=== PATIENT | female | born 1995 | race Caucasian/White ===

== ENCOUNTER 2016-12-08 04:16 | Emergency (ER) | payer SELFPAY ==
[~2016-12-08] VITALS: Ht 162.6 cm; Wt 78.7 kg
[~2016-12-08 04:16] MED LIST: CITA20TA9 PO; HYDR-5688 PO
[2016-12-08 04:30] VITALS: TEMP 37; Ht 162.6 cm; Wt 78.7 kg
[2016-12-08] MEDS ORDERED: CITA40TA12 PO (04:54)
[2016-12-08] MEDS ORDERED: ONDANSETRON 4MG OD TAB PO ONE (05:00)
--- NOTE | 2016-12-08 05:12 | EMERGENCY ROOM VISIT NOTE ---
History First contact with patient: 04:42 Chief Complaint: VOMITING Stated Complaint: VOMITING(DRANK TOO MUCH) NO MEDS IN 2 DAYS Nursing Triage Summary: vomiting started one hour ago, emisis 5-6 times, clear History of Present Illness The patient is a 21 year old female who presents to the Emergency Room with complaints of vomiting which began one hour ago. The patient reports that she had been drinking alcohol prior to the onset of the vomiting. She states that she drank 1.5 pitchers of beer in 2-3 shots of liquor between the hours of 2230 and 0030. She states that when she lays down, the room began spinning. She has had multiple episodes of vomiting and has not been able to tolerate any oral fluids. The patient reports nausea at this time, but denies any abdominal pain. She denies urinary symptoms, chest pain, shortness of breath, headache or neck pain. Review of Systems A complete 10-point Review of Systems was discussed with the patient, with pertinent positives and negatives listed in the History of Present Illness. All remaining Review of Systems questions can be considered negative unless otherwise specified. Past Medical/Surgical History Medical Problems: (1) Dysuria (2) No Known Active Medical Problems (3) Pain, dental (4) Pain, dental (5) Pelvic girdle weakness (6) SI (sacroiliac) joint dysfunction (7) TOBACCO USE DISORDER Social History Smoking Status: Former Smoker Alcohol Use: none Drug Use: none Marital Status: single Housing Status: lives with significant other Occupation Status: employed Current/Historical Medications Scheduled Citalopram Hydrobromide (Celexa), 40 MG PO DAILY Allergies Coded Allergies: No Known Allergies (Unverified , 12/08/16) Physical Exam Vital Signs Date Time Temp Pulse Resp B/P Pulse Ox O2 Delivery O2 Flow Rate FiO2 12/08/16 06:09 72 18 104/60 98 Room Air 12/08/16 04:30 37.0 80 18 110/74 98 Room Air Physical Exam VITALS: Vitals are noted on the nurse's note and reviewed by myself. Vital signs stable. GENERAL: This is a 21-year-old female, in no acute distress, nondiaphoretic, well-developed well-nourished. SKIN: Capillary reflex less than 2 seconds. HEENT: Normocephalic. PERRLA. EOMI. Nares patent. Mucous membranes moist. Neck is supple without nuchal rigidity. HEART: Regular rate and rhythm without murmurs gallops or rubs. LUNGS: Clear to auscultation bilaterally without wheezes, rales or rhonchi. ABDOMEN: Positive bowel sounds x 4. Soft, nontender to palpation. No guarding or rigidity. NEURO: Patient was alert and oriented to person place and time. Medical Decision & Procedures Medications Administered Medications (Trade) Dose Ordered Sig/Kathy Route Start Time Stop Time Status Last Admin Dose Admin Ondansetron HCl (Zofran Odt) 4 mg ONE ONCE PO 12/08/16 05:00 12/08/16 05:01 DC 12/08/16 05:09 4 MG Ondansetron HCl (ZOFRAN ODT 4MG Home Pack) 1 homepack UD ONCE PO 12/08/16 06:00 12/08/16 06:01 DC 12/08/16 06:15 1 HOMEPACK Medical Decision Differential diagnosis includes alcohol use, cholecystitis, infection, gastroenteritis, among others. The patient was evaluated as above. She presents with vomiting after drinking alcohol tonight. The patient was given 4 mg Zofran ODT was for relief of her symptoms. She was able to tolerate fluids. She was given a home pack of Zofran and conservative measures were discussed. She verbalized understanding and was discharged home in good condition. Impression Primary Impression: Nausea and vomiting Departure Information Dispostion Home / Self-Care Condition GOOD Referrals Zackery Berman M.D. (PCP) Patient Instructions My [facility] Additional Instructions You have been prescribed Zofran to be used for any nausea or vomiting. Take as prescribed. Rest and drink plenty of fluids. Problem Qualifiers Primary Impression: Nausea and vomiting Vomiting type: unspecified Vomiting Intractability: non-intractable Qualified Codes: R11.2 - Nausea with vomiting, unspecified
[2016-12-08] MEDS ORDERED: ONDANSETRON HOME PACK 4MG OD TAB PO ONE (06:00)
[2016-12-08 06:09] VITALS: BP 104/60; PULSE 72; O2SAT 98
== END 2016-12-08 06:18 | disposition home or self-care (01) ==
LOC: C.EDB 04:18 → C.EDA 06:18
DX: R11.2 Nausea with vomiting, unspecified (principal); Z87.891 Personal history of nicotine dependence

== ENCOUNTER 2017-02-19 04:13 | Emergency (ER) | payer OTHER ==
[~2017-02-19] VITALS: Ht 162.6 cm; Wt 82.0 kg
[~2017-02-19 04:13] MED LIST changes: -CITA20TA9 PO; +CITA40TA12 PO; -HYDR-5688 PO
[2017-02-19 04:39] VITALS: TEMP 37.2; Ht 162.6 cm; Wt 82.0 kg
--- NOTE | 2017-02-19 04:55 | EMERGENCY ROOM VISIT NOTE ---
History Report prepared by Darrell: Marianela Hernandez Under the Supervision of: Dr. Montserrat Suazo M.D. First contact with patient: 04:24 Chief Complaint: MENTAL HEALTH EVALUATION Stated Complaint: MENTAL HEALTH EVAL History of Present Illness The patient is a 22 year old female who presents to the Emergency Room with complaints of persistent mental health problems starting [employer]. The mental health corrections caseworker reports that the patient had a fight with her girlfriend. She is tearful. She told her mother a vague statement stating she wouldn't see her anymore. She was brought to the ED by police whom she did tell she was feeling suicidal. She is intoxicated. She often feels suicidal over relationship problems. The patient reports that she was upset that her girlfriend said she would not be coming home for 2nd weekend in a row. Her girlfriend said that she was staying at a friend's house. She has cheated on the patient before so she is distrustful of her. The girlfriend came with the police to get her stuff. She had drank a 12 pack of beer and was intoxicated. She told her girlfriend how she felt. She said that she would rather kill herself than be by herself. She has never attempted suicide, but has thought about it. She thought about crashing her car a couple nights ago. She thought about it today, but states that she does not believe she could go through with it. She was on medications for depression and anxiety, but stopped taking it because she has an abnormal sleep schedule and she did not care. Her sleep schedule is abnormal because of her girlfriend's work schedule. She has never had inpatient mental health care before. She does not have a psychiatrist. She admits to taking some hydrocodone the other night which was leftover from an arm injury. She denies any marijuana use. She denies any chance of . She denies cutting in the past year. She denies any recent injury or trauma. Source of History: patient, other (corrections caseworker) Onset: SHIPPING CHECKER Position: other (mental health) Quality: other (mental health problems) Timing: other (persistent) Note: Pt admits suicidal ideation. Pt denies homicidal ideation, trauma, or injury. Review of Systems See HPI for pertinent positives & negatives. A total of 10 systems reviewed and were otherwise negative. Past Medical & Surgical Medical Problems: (1) Dysuria (2) No Known Active Medical Problems (3) Pain, dental (4) Pain, dental (5) Pelvic girdle weakness (6) SI (sacroiliac) joint dysfunction (7) TOBACCO USE DISORDER Family History No pertinent family history stated. Social History Smoking Status: Former Smoker Alcohol Use: occasionally Drug Use: none Marital Status: single Housing Status: lives with significant other Occupation Status: employed Current/Historical Medications No Active Prescriptions or Reported Meds Allergies Coded Allergies: No Known Allergies (Unverified , 02/19/17) Physical Exam Vital Signs Date Time Temp Pulse Resp B/P Pulse Ox O2 Delivery O2 Flow Rate FiO2 02/19/17 04:39 37.2 118 20 135/98 97 Room Air Physical Exam Vital signs reviewed. General: Well-appearing 22 year old female, in no significant distress. HEENT: No scleral icterus, PERRLA, neck supple. Atraumatic. Cardiovascular: Regular rate and rhythm, no extra sounds. Pulmonary: Clear to auscultation bilaterally, normal work of breathing. Abdomen: Soft, nontender, nondistended, positive bowel sounds. Musculoskeletal: Atraumatic, no peripheral edema. Neurologic: Patient awake alert and oriented x 3, full strength in all 4 extremities. Cranial nerves 2 through 12 grossly intact. Skin: Warm, dry, no rash Psych: Positive SI, negative HI. Medical Decision & Procedures Laboratory Results 02/19/17 04:50 Red Blood Count 4.08, Mean Corpuscular Volume 92.2, Mean Corpuscular Hemoglobin 31.6, Mean Corpuscular Hemoglobin Concent 34.3, Mean Platelet Volume 9.6, Neutrophils (%) (Auto) 57.2, Lymphocytes (%) (Auto) 37.0, Monocytes (%) (Auto) 5.0, Eosinophils (%) (Auto) 0.0, Basophils (%) (Auto) 0.5, Neutrophils # (Auto) 4.42, Lymphocytes # (Auto) 2.86, Monocytes # (Auto) 0.39, Eosinophils # (Auto) 0.00, Basophils # (Auto) 0.04 02/19/17 04:50 Test 02/19/17 04:47 02/19/17 04:50 Urine Color YELLOW Urine Appearance CLEAR (CLEAR) Urine pH 6.0 (4.5-7.5) Urine Specific [place] 1.006 (1.000-1.030) Urine Protein NEG (NEG) Urine Glucose (UA) NEG (NEG) Urine Ketones NEG (NEG) Urine Occult Blood NEG (NEG) Urine Nitrite NEG (NEG) Urine Bilirubin NEG (NEG) Urine Urobilinogen NEG (NEG) Urine Leukocyte Esterase NEG (NEG) Urine Test NEG (NEG) Urine Opiates Screen NEG (NEG) Urine Methadone, Qualitative NEG (NEG) Urine Barbiturates NEG (NEG) Urine Phencyclidine (PCP) Level NEG (NEG) Ur Amphetamine/Methamphetamine NEG (NEG) MDMA (Ecstasy) Screen NEG (NEG) Urine Benzodiazepines Screen NEG (NEG) Urine Cocaine Metabolite NEG (NEG) Urine Marijuana (THC) NEG (NEG) White Blood Count 7.73 K/uL (4.8-10.8) Red Blood Count 4.08 M/uL (4.2-5.4) Hemoglobin 12.9 g/dL (12.0-16.0) Hematocrit 37.6 % (37-47) Mean Corpuscular Volume 92.2 fL (80-100) Mean Corpuscular Hemoglobin 31.6 pg (25-34) Mean Corpuscular Hemoglobin Concent 34.3 g/dl (32-36) Platelet Count 362 K/uL (130-400) Mean Platelet Volume 9.6 fL (7.4-10.4) Neutrophils (%) (Auto) 57.2 % Lymphocytes (%) (Auto) 37.0 % Monocytes (%) (Auto) 5.0 % Eosinophils (%) (Auto) 0.0 % Basophils (%) (Auto) 0.5 % Neutrophils # (Auto) 4.42 K/uL (1.4-6.5) Lymphocytes # (Auto) 2.86 K/uL (1.2-3.4) Monocytes # (Auto) 0.39 K/uL (0.11-0.59) Eosinophils # (Auto) 0.00 K/uL (0-0.5) Basophils # (Auto) 0.04 K/uL (0-0.2) RDW Standard Deviation 40.3 fL (36.4-46.3) RDW Coefficient of Variation 11.8 % (11.5-14.5) Immature Granulocyte % (Auto) 0.3 % Immature Granulocyte # (Auto) 0.02 K/uL (0.00-0.02) Anion Gap 13.0 mmol/L (3-11) Est Creatinine Clear Calc Drug Dose 153.7 ml/min Estimated GFR () 149.7 Estimated GFR (Non- 129.2 BUN/Creatinine Ratio 14.4 (10-20) Calcium Level 8.8 mg/dl (8.5-10.1) Total Bilirubin 0.1 mg/dl (0.2-1) Direct Bilirubin < 0.1 mg/dl (0-0.2) Aspartate Amino Transf (AST/SGOT) 10 U/L (15-37) Alanine Aminotransferase (ALT/SGPT) 16 U/L (12-78) Alkaline Phosphatase 71 U/L (45-117) Total Protein 8.5 gm/dl (6.4-8.2) Albumin 3.9 gm/dl (3.4-5.0) Thyroid Stimulating Hormone (TSH) 0.919 uIu/ml (0.300-4.500) Salicylates Level < 1.7 mg/dl (2.8-20) Acetaminophen Level < 2 ug/ml (10-30) Ethyl Alcohol mg/dL 165.0 mg/dl (0-3) Laboratory results per my review. ED Course 0433: Past medical records reviewed. The patient was evaluated in room A7. A complete history and physical examination was performed. Medical Decision Differential diagnosis: Etiologies such as mood disorder, infection, hypoglycemia, electrolyte abnormalities, cardiac sources, intracerebral event, toxicologic, neurologic, as well as others were entertained. This patient was evaluated and appeared to be in no significant distress. Patient was medically evaluated and found to have a blood alcohol of 165. She admits to suicidal ideation and will require psychiatric evaluation. Patient will be clear for psychiatric evaluation at 0750. The case has been signed out to Dr. Stanley at the change of shift, patient is aware of the plan and agrees. Impression Primary Impression: Suicidal ideation Additional Impression: Alcohol intoxication Scribe Attestation The scribe's documentation has been prepared under my direction and personally reviewed by me in its entirety. I confirm that the note above accurately reflects all work, treatment, procedures, and medical decision making performed by me. Departure Information Prescriptions No Active Prescriptions or Reported Meds Referrals No Doctor, Assigned (PCP) Patient Instructions My [facility] Problem Qualifiers
[2017-02-19 05:25] LABS: URINE APPEARANCE CLEAR (CLEAR); URINE BILIRUBIN NEG (NEG); URINE COLOR YELLOW; URINE NITRITE NEG (NEG); URINE SPECIFIC GRAVITY 1.006 (1.000-1.030); UROBILINOGEN NEG (NEG); ZZUR CULT IF INDIC CLEAN CATCH NO
[2017-02-19 05:33] LABS: BASO % 0.5 %; BASO ABS # 0.04 K/uL (0-0.2); COMPLETE YES; HEMATOCRIT 37.6 % (37-47); IG% 0.3 %; LYMPH ABS # 2.86 K/uL (1.2-3.4); MEAN CELL VOLUME 92.2 fL (80-100); MEAN CORPUSCULAR HEMOGLOBIN 31.6 pg (25-34); MEAN CORPUSCULAR HGB CONC 34.3 g/dl (32-36); MEAN PLATELET VOLUME 9.6 fL (7.4-10.4); NEUT % 57.2 %; PLATELET COUNT 362 K/uL (130-400); RED BLOOD COUNT 4.08 M/uL (4.2-5.4); WHITE BLOOD COUNT 7.73 K/uL (4.8-10.8)
[2017-02-19 05:34] LABS: MANUAL MICROSCOPIC REQUIRED? NO; PREG INTERNAL NEGATIVE QC NEG CLEAR BACKGROUND; PREG INTERNAL POSITIVE QC POS CONTROL LINE; REVIEW REQ? NO
[2017-02-19 05:42] LABS: ALT/SGPT 16 U/L (12-78); AST/SGOT 10 U/L (15-37); BLOOD UREA NITROGEN 8 mg/dl (7-18); BUN/CREATININE RATIO 14.4 (10-20); CALCIUM 8.8 mg/dl (8.5-10.1); CARBON DIOXIDE 23 mmol/L (21-32); CHLORIDE 106 mmol/L (98-107); CREATININE 0.59 mg/dl (0.60-1.20); GLUCOSE 99 mg/dl (70-99); POTASSIUM 3.4 mmol/L (3.5-5.1); SODIUM 142 mmol/L (136-145)
[2017-02-19 05:46] LABS: BENZODIAZEPINE, URINE NEG (NEG); COCAINE,URINE NEG (NEG); PHENCYCLIDINE, URINE NEG (NEG)
[2017-02-19 05:50] LABS: ACETAMINOPHEN < 2 ug/ml (10-30)
[2017-02-19 05:53] LABS: ALKALINE PHOSPHATASE 71 U/L (45-117); THYROID STIMULATING HORMONE 0.919 uIu/ml (0.300-4.500)
--- NOTE | 2017-02-19 15:01 | EMERGENCY ROOM VISIT NOTE ---
ED Visit Note First contact with patient: 09:09 Patient was signed out to me with a [address] which was rejected by [facility]. Patient was reevaluated and agreeable to come in on a 201 for suicidal ideations which have been present/coming going almost daily with or drinking at night. She was accepted in transfer to the [facility] on a 201.
[2017-02-19 16:58] VITALS: BP 132/81; PULSE 89; O2SAT 99
[2017-02-26 18:34] LABS: SYNTHETIC CANNABINOIDS QL URIN NEGATIVE (Negative)
== END 2017-02-19 16:59 ==
LOC: EDBD 04:13 → C.EDA 04:14
DX: R45.851 Suicidal ideations (principal); F10.129 Alcohol abuse with intoxication, unspecified; Y90.6 Blood alcohol level of 120-199 mg/100 ml; F17.200 Nicotine dependence, unspecified, uncomplicated; Z87.891 Personal history of nicotine dependence

== ENCOUNTER 2017-07-04 01:20 | Emergency (ER) | payer OTHER ==
[~2017-07-04] VITALS: Ht 162.6 cm; Wt 84.5 kg
[2017-07-04 01:26] VITALS: TEMP 36.9; Ht 162.6 cm; Wt 84.5 kg
--- NOTE | 2017-07-04 02:02 | EMERGENCY ROOM VISIT NOTE ---
History Report prepared by Darrell: Jossie Patel Under the Supervision of: Dr. Montserrat Suazo M.D. First contact with patient: 01:33 Chief Complaint: MENTAL HEALTH EVALUATION Stated Complaint: DEPRESSION History of Present Illness The patient is a 22 year old female who presents to the Emergency Room with complaints of depression. The patient states that she feels that she needs to get back on her medication for depression. She states that she has not been on it for 2 months and that she was on it for a month previously. The patient reports that she stopped taking the medication a couple weeks after she was at [place]. She states that she was fine until she went through a break-up a month ago. She states that she feels as if the break-up is hitting her now and that she has been having suicidal thoughts when she is drinking alcohol. The patient denies an attempt at killing herself. She states that she has suicidal thoughts when she drinks but not when she is sober. The patient states that she drank 6 beers tonight and that she is a smoker. The patient reports that she has a new girlfriend, but that the girlfriend has been distant the last couple of days. Source of History: patient Onset: tonight Position: other (global) Quality: other (depression) Timing: constant Note: additional symptom: suicidal thoughts when drinking Review of Systems See HPI for pertinent positives & negatives. A total of 10 systems reviewed and were otherwise negative. Past Medical & Surgical Medical Problems: (1) Depression (2) Dysuria (3) Pain, dental (4) Pain, dental (5) Pelvic girdle weakness (6) SI (sacroiliac) joint dysfunction (7) TOBACCO USE DISORDER Family History No pertinent family history stated. Social History Smoking Status: Current Every Day Smoker Alcohol Use: occasionally Drug Use: none Marital Status: in relationship Occupation Status: employed Current/Historical Medications Scheduled PRN Lorazepam (Ativan), 0.5 MG PO DAILY PRN for Anxiety Allergies Coded Allergies: No Known Allergies (Unverified , 07/04/17) Physical Exam Vital Signs Date Time Temp Pulse Resp B/P (MAP) Pulse Ox O2 Delivery O2 Flow Rate FiO2 07/04/17 01:26 36.9 105 20 137/69 97 Room Air Physical Exam Vital signs reviewed. General: Well-appearing female, in no significant distress. HEENT: No scleral icterus, PERRLA, neck supple. Atraumatic. Cardiovascular: Regular rate and rhythm, no extra sounds. Pulmonary: Clear to auscultation bilaterally, normal work of breathing. Abdomen: Soft, nontender, nondistended, positive bowel sounds. Musculoskeletal: Atraumatic, no peripheral edema. Neurologic: Patient awake alert and oriented x 3, full strength in all 4 extremities. Cranial nerves 2 through 12 grossly intact. Psych: + SI, - HI Skin: Warm, dry, no rash Medical Decision & Procedures Laboratory Results 07/04/17 02:18 Red Blood Count 4.71, Mean Corpuscular Volume 91.5, Mean Corpuscular Hemoglobin 32.1, Mean Corpuscular Hemoglobin Concent 35.0, Mean Platelet Volume 9.8, Neutrophils (%) (Auto) 58.1, Lymphocytes (%) (Auto) 33.2, Monocytes (%) (Auto) 6.3, Eosinophils (%) (Auto) 1.9, Basophils (%) (Auto) 0.4, Neutrophils # (Auto) 4.08, Lymphocytes # (Auto) 2.33, Monocytes # (Auto) 0.44, Eosinophils # (Auto) 0.13, Basophils # (Auto) 0.03 07/04/17 02:18 Test 07/04/17 02:18 07/04/17 02:25 White Blood Count 7.02 K/uL (4.8-10.8) Red Blood Count 4.71 M/uL (4.2-5.4) Hemoglobin 15.1 g/dL (12.0-16.0) Hematocrit 43.1 % (37-47) Mean Corpuscular Volume 91.5 fL (80-100) Mean Corpuscular Hemoglobin 32.1 pg (25-34) Mean Corpuscular Hemoglobin Concent 35.0 g/dl (32-36) Platelet Count 286 K/uL (130-400) Mean Platelet Volume 9.8 fL (7.4-10.4) Neutrophils (%) (Auto) 58.1 % Lymphocytes (%) (Auto) 33.2 % Monocytes (%) (Auto) 6.3 % Eosinophils (%) (Auto) 1.9 % Basophils (%) (Auto) 0.4 % Neutrophils # (Auto) 4.08 K/uL (1.4-6.5) Lymphocytes # (Auto) 2.33 K/uL (1.2-3.4) Monocytes # (Auto) 0.44 K/uL (0.11-0.59) Eosinophils # (Auto) 0.13 K/uL (0-0.5) Basophils # (Auto) 0.03 K/uL (0-0.2) RDW Standard Deviation 39.4 fL (36.4-46.3) RDW Coefficient of Variation 11.6 % (11.5-14.5) Immature Granulocyte % (Auto) 0.1 % Immature Granulocyte # (Auto) 0.01 K/uL (0.00-0.02) Anion Gap 9.0 mmol/L (3-11) Est Creatinine Clear Calc Drug Dose 109.6 ml/min Estimated GFR () 113.5 Estimated GFR (Non- 98.0 BUN/Creatinine Ratio 8.5 (10-20) Calcium Level 8.2 mg/dl (8.5-10.1) Total Bilirubin 0.1 mg/dl (0.2-1) Direct Bilirubin < 0.1 mg/dl (0-0.2) Aspartate Amino Transf (AST/SGOT) 10 U/L (15-37) Alanine Aminotransferase (ALT/SGPT) 21 U/L (12-78) Alkaline Phosphatase 82 U/L (45-117) Total Protein 7.9 gm/dl (6.4-8.2) Albumin 3.7 gm/dl (3.4-5.0) Thyroid Stimulating Hormone (TSH) 0.658 uIu/ml (0.300-4.500) Salicylates Level 1.7 mg/dl (2.8-20) Acetaminophen Level < 2 ug/ml (10-30) Ethyl Alcohol mg/dL 186.0 mg/dl (0-3) Urine Color YELLOW Urine Appearance CLEAR (CLEAR) Urine pH 5.5 (4.5-7.5) Urine Specific [place] 1.012 (1.000-1.030) Urine Protein NEG (NEG) Urine Glucose (UA) NEG (NEG) Urine Ketones NEG (NEG) Urine Occult Blood NEG (NEG) Urine Nitrite NEG (NEG) Urine Bilirubin NEG (NEG) Urine Urobilinogen NEG (NEG) Urine Leukocyte Esterase NEG (NEG) Urine Test NEG (NEG) Urine Opiates Screen NEG (NEG) Urine Methadone, Qualitative NEG (NEG) Urine Barbiturates NEG (NEG) Urine Phencyclidine (PCP) Level NEG (NEG) Ur Amphetamine/Methamphetamine NEG (NEG) MDMA (Ecstasy) Screen NEG (NEG) Urine Benzodiazepines Screen NEG (NEG) Urine Cocaine Metabolite NEG (NEG) Urine Marijuana (THC) NEG (NEG) Laboratory results per my review. ED Course 0152: Past medical records reviewed. The patient was evaluated in room A6. A complete history and physical examination was performed. Medical Decision Differential diagnosis: Etiologies such as mood disorder, infection, hypoglycemia, electrolyte abnormalities, cardiac sources, intracerebral event, toxicologic, neurologic, as well as others were entertained. This patient was evaluated and appeared to be in no significant distress. The patient was medically cleared after her blood alcohol was less than 100. Patient was evaluated by 3 S. and felt to have situational stressors along with new testosterone injections and alcohol consumption that contributed to her suicidal thoughts. The patient states when she is sober she does not have issues such as this. She has not been drinking in approximately 2 months. The patient is also currently taking testosterone as she is transgender. The case was discussed with Dr. German who recommended outpatient management in the patient restarting her Prozac. She will contact her PCP for short-term follow- up. Dr. German is also recommended counseling. Please see psychiatric documentation for further detail. The patient was able to CT plan and will return to the ER immediately for worsening of symptoms or any medical concerns. Medication Reconcilliation Current Medication List: was personally reviewed by me Blood Pressure Screening Patient's blood pressure: Normal blood pressure Impression Primary Impression: Alcohol intoxication Additional Impression: Suicidal thoughts Scribe Attestation The scribe's documentation has been prepared under my direction and personally reviewed by me in its entirety. I confirm that the note above accurately reflects all work, treatment, procedures, and medical decision making performed by me. Departure Information Referrals Zackery Berman M.D. (PCP) Patient Instructions My [facility] Problem Qualifiers
[2017-07-04 02:27] LABS: BASO % 0.4 %; BASO ABS # 0.03 K/uL (0-0.2); COMPLETE YES; EOS % 1.9 %; HEMATOCRIT 43.1 % (37-47); IG% 0.1 %; LYMPH % 33.2 %; LYMPH ABS # 2.33 K/uL (1.2-3.4); MEAN CELL VOLUME 91.5 fL (80-100); MEAN CORPUSCULAR HEMOGLOBIN 32.1 pg (25-34); MEAN PLATELET VOLUME 9.8 fL (7.4-10.4); MONO % 6.3 %; NEUT % 58.1 %; PLATELET COUNT 286 K/uL (130-400); RED BLOOD COUNT 4.71 M/uL (4.2-5.4); WHITE BLOOD COUNT 7.02 K/uL (4.8-10.8)
[2017-07-04 02:41] LABS: URINE APPEARANCE CLEAR (CLEAR); URINE BILIRUBIN NEG (NEG); URINE COLOR YELLOW; URINE NITRITE NEG (NEG); URINE PH 5.5 (4.5-7.5); URINE SPECIFIC GRAVITY 1.012 (1.000-1.030); UROBILINOGEN NEG (NEG); ZZUR CULT IF INDIC CLEAN CATCH NO
[2017-07-04 02:44] LABS: MANUAL MICROSCOPIC REQUIRED? NO; REVIEW REQ? NO
[2017-07-04 02:45] LABS: ALT/SGPT 21 U/L (12-78); AST/SGOT 10 U/L (15-37); BLOOD UREA NITROGEN 7 mg/dl (7-18); BUN/CREATININE RATIO 8.5 (10-20); CALCIUM 8.2 mg/dl (8.5-10.1); CARBON DIOXIDE 25 mmol/L (21-32); CHLORIDE 105 mmol/L (98-107); CREATININE 0.84 mg/dl (0.60-1.20); GLUCOSE 91 mg/dl (70-99); POTASSIUM 3.5 mmol/L (3.5-5.1); SODIUM 139 mmol/L (136-145)
[2017-07-04 02:54] LABS: ACETAMINOPHEN < 2 ug/ml (10-30)
[2017-07-04 02:55] LABS: ALKALINE PHOSPHATASE 82 U/L (45-117); THYROID STIMULATING HORMONE 0.658 uIu/ml (0.300-4.500)
[2017-07-04] MEDS ORDERED: LORA-741 PO (02:58)
[2017-07-04 03:02] LABS: BENZODIAZEPINE, URINE NEG (NEG); COCAINE,URINE NEG (NEG); PHENCYCLIDINE, URINE NEG (NEG)
[2017-07-04 06:38] VITALS: BP 131/76; PULSE 97; O2SAT 98
[2017-07-11 14:33] LABS: SYNTHETIC CANNABINOIDS QL URIN NEGATIVE (Negative)
== END 2017-07-04 06:38 | disposition home or self-care (01) ==
LOC: C.EDB 01:22 → C.EDA 06:38
DX: F10.920 Alcohol use, unspecified with intoxication, uncomplicated (principal); Y90.6 Blood alcohol level of 120-199 mg/100 ml; R45.851 Suicidal ideations; F17.210 Nicotine dependence, cigarettes, uncomplicated; F32.9 Major depressive disorder, single episode, unspecified

== ENCOUNTER 2017-07-20 13:37 | Emergency (ER) | payer OTHER ==
[~2017-07-20] VITALS: Ht 162.6 cm; Wt 83.9 kg
[~2017-07-20 13:37] MED LIST changes: -CITA40TA12 PO; +LORA-741 PO
[2017-07-20 13:40] VITALS: TEMP 36.7; Ht 162.6 cm; Wt 83.9 kg
[2017-07-20] MEDS ORDERED: DPTSTI200 IM (13:48)
[2017-07-20] MEDS ORDERED: FLUO20CA35 PO (13:48)
[2017-07-20] MEDS ORDERED: ONDANSETRON INJ 2 MG/ML 2 ML VIAL IV STA (14:27)
[2017-07-20] MEDS ORDERED: SODIUM CHLORIDE 0.9% 1000ML 1,000 ML IV STA (14:27)
[2017-07-20 14:54] LABS: BASO % 0.3 %; BASO ABS # 0.02 K/uL (0-0.2); COMPLETE YES; EOS % 0.7 %; HEMATOCRIT 45.8 % (37-47); IG% 0.1 %; LYMPH % 31.1 %; LYMPH ABS # 2.28 K/uL (1.2-3.4); MEAN CORPUSCULAR HEMOGLOBIN 32.3 pg (25-34); MEAN CORPUSCULAR HGB CONC 35.2 g/dl (32-36); MEAN PLATELET VOLUME 10.2 fL (7.4-10.4); MONO % 8.2 %; NEUT % 59.6 %; PLATELET COUNT 270 K/uL (130-400); RED BLOOD COUNT 4.98 M/uL (4.2-5.4); WHITE BLOOD COUNT 7.32 K/uL (4.8-10.8)
--- NOTE | 2017-07-20 14:59 | DIAGNOSTIC IMAGING REPORT ---
CT SCAN OF THE BRAIN WITHOUT IV CONTRAST CLINICAL HISTORY: Headache. COMPARISON STUDY: No priors. TECHNIQUE: Unenhanced axial CT scan of the brain is performed from the vertex to the skull base. A dose lowering technique was utilized adhering to the principles of ALARA. CT DOSE: 638.56 mGycm FINDINGS: Brain parenchyma: The brain parenchyma is normal in appearance. There is no hemorrhage, mass effect, or evidence of acute territorial ischemia by CT criteria. Cruz-white matter is preserved. No extra-axial fluid collection is seen. Ventricles, sulci, cisterns: Normal in configuration. Intracranial vasculature: The visualized intracranial vasculature at the skull base is normal in appearance. Calvarium: Unremarkable. Sinuses and mastoids: The visualized paranasal sinuses are clear. The mastoid air cells are well pneumatized. Orbits: The bony orbits are grossly intact. IMPRESSION: No acute intracranial abnormality. Electronically signed by: Fransico Kohli M.D. 07/20/2017 2:57 PM Dictated Date/Time: 07/20/2017 2:56 PM
[2017-07-20 15:17] LABS: CALCIUM 8.9 mg/dl (8.5-10.1); POTASSIUM 3.8 mmol/L (3.5-5.1)
[2017-07-20 15:18] LABS: PREG INTERNAL NEGATIVE QC NEG CLEAR BACKGROUND; PREG INTERNAL POSITIVE QC POS CONTROL LINE
[2017-07-20 15:33] VITALS: BP 124/75; PULSE 67; O2SAT 98
[2017-07-20] MEDS ORDERED: ONDA4TAB10 SL (15:38)
--- NOTE | 2017-07-20 15:38 | EMERGENCY ROOM VISIT NOTE ---
History First contact with patient: 13:55 Chief Complaint: HEADACHE Stated Complaint: HEADACHE History of Present Illness The patient is a 22 year old female who presents to the Emergency Room with complaints of a headache. The patient states that she had a headache beginning last night. She notes the pain is in front of her head, at the top of her nose. She has had associated nausea and vomiting and vomited in the room just prior to my evaluation. She states that she has had headaches like these over the past few weeks. She does report these headaches are new for her to be worse than headaches she has had in the past. She denies any photophobia, vision changes, neck pain, fevers/chills, recent illness, numbness or weakness. She denies any head injury. She denies any history of migraines or other headache disorders. Review of Systems A complete 10 point review of systems was reviewed with the patient with pertinent positives and negatives as per history of present illness. All else were negative. Past Medical/Surgical History Medical Problems: (1) Depression (2) Dysuria (3) Pain, dental (4) Pain, dental (5) Pelvic girdle weakness (6) SI (sacroiliac) joint dysfunction (7) TOBACCO USE DISORDER Social History Smoking Status: Current Every Day Smoker Alcohol Use: occasionally Drug Use: none Marital Status: in relationship Occupation Status: employed Current/Historical Medications Scheduled Fluoxetine (Prozac), 1 CAP PO DAILY Ondasetron Odt (Zofran Odt), 4 MG SL Q6H Testosterone Cypionate (Depo-Testosterone), 100 MG IM WK Scheduled PRN Lorazepam (Ativan), 0.5 MG PO DAILY PRN for Anxiety Physical Exam Vital Signs Date Time Temp Pulse Resp B/P (MAP) Pulse Ox O2 Delivery O2 Flow Rate FiO2 07/20/17 15:33 67 16 124/75 98 Room Air 07/20/17 13:40 36.7 93 18 136/95 98 Room Air Physical Exam VITALS: Vitals are noted on the nurse's note and reviewed by myself. Vital signs stable. GENERAL: This is a 22-year-old female, in no acute distress, nondiaphoretic, well-developed well-nourished. SKIN: The skin was without rashes. HEAD: Normocephalic atraumatic. EARS: External auditory canals clear, tympanic membranes pearly cruz without erythema or effusion bilaterally. EYES: Pupils equal round and reactive to light and accommodation. Conjunctivae without injection, sclerae without icterus. Extraocular movements intact. MOUTH: Mucous membranes moist. Tonsils are not enlarged. Pharynx without erythema or exudate. NECK: Supple without nuchal rigidity. No lymphadenopathy. HEART: Regular rate and rhythm without murmurs gallops or rubs. LUNGS: Clear to auscultation bilaterally without wheezes, rales or rhonchi. MUSCULOSKELETAL: Strength 5/5 throughout. NEURO: Patient was alert and oriented to person place and time. Normal sensation to light and sharp touch. Deep tendon reflexes 2+ throughout. No focal neurological deficits. Medical Decision & Procedures ER Provider Diagnostic Interpretation: CT SCAN OF THE BRAIN WITHOUT IV CONTRAST FINDINGS: Brain parenchyma: The brain parenchyma is normal in appearance. There is no hemorrhage, mass effect, or evidence of acute territorial ischemia by CT criteria. Cruz-white matter is preserved. No extra-axial fluid collection is seen. Ventricles, sulci, cisterns: Normal in configuration. Intracranial vasculature: The visualized intracranial vasculature at the skull base is normal in appearance. Calvarium: Unremarkable. Sinuses and mastoids: The visualized paranasal sinuses are clear. The mastoid air cells are well pneumatized. Orbits: The bony orbits are grossly intact. IMPRESSION: No acute intracranial abnormality. Laboratory Results 07/20/17 14:40 Red Blood Count 4.98, Mean Corpuscular Volume 92.0, Mean Corpuscular Hemoglobin 32.3, Mean Corpuscular Hemoglobin Concent 35.2, Mean Platelet Volume 10.2, Neutrophils (%) (Auto) 59.6, Lymphocytes (%) (Auto) 31.1, Monocytes (%) (Auto) 8.2, Eosinophils (%) (Auto) 0.7, Basophils (%) (Auto) 0.3, Neutrophils # (Auto) 4.36, Lymphocytes # (Auto) 2.28, Monocytes # (Auto) 0.60, Eosinophils # (Auto) 0.05, Basophils # (Auto) 0.02 07/20/17 14:40 Test 07/20/17 14:40 White Blood Count 7.32 K/uL (4.8-10.8) Red Blood Count 4.98 M/uL (4.2-5.4) Hemoglobin 16.1 g/dL (12.0-16.0) Hematocrit 45.8 % (37-47) Mean Corpuscular Volume 92.0 fL (80-100) Mean Corpuscular Hemoglobin 32.3 pg (25-34) Mean Corpuscular Hemoglobin Concent 35.2 g/dl (32-36) Platelet Count 270 K/uL (130-400) Mean Platelet Volume 10.2 fL (7.4-10.4) Neutrophils (%) (Auto) 59.6 % Lymphocytes (%) (Auto) 31.1 % Monocytes (%) (Auto) 8.2 % Eosinophils (%) (Auto) 0.7 % Basophils (%) (Auto) 0.3 % Neutrophils # (Auto) 4.36 K/uL (1.4-6.5) Lymphocytes # (Auto) 2.28 K/uL (1.2-3.4) Monocytes # (Auto) 0.60 K/uL (0.11-0.59) Eosinophils # (Auto) 0.05 K/uL (0-0.5) Basophils # (Auto) 0.02 K/uL (0-0.2) RDW Standard Deviation 40.5 fL (36.4-46.3) RDW Coefficient of Variation 12.0 % (11.5-14.5) Immature Granulocyte % (Auto) 0.1 % Immature Granulocyte # (Auto) 0.01 K/uL (0.00-0.02) Anion Gap 6.0 mmol/L (3-11) Est Creatinine Clear Calc Drug Dose 91.7 ml/min Estimated GFR () 92.0 Estimated GFR (Non- 79.4 BUN/Creatinine Ratio 10.0 (10-20) Calcium Level 8.9 mg/dl (8.5-10.1) Human Chorionic Gonadotropin, Qual NEG (NEG) Medications Administered Medications (Trade) Dose Ordered Sig/Kathy Route Start Time Stop Time Status Last Admin Dose Admin Sodium Chloride 1,000 ml @ 999 mls/hr Q1H1M STAT IV 07/20/17 14:27 07/20/17 15:27 DC 07/20/17 14:39 999 MLS/HR Ondansetron HCl (Zofran Inj) 4 mg NOW STAT IV 07/20/17 14:27 07/20/17 14:30 DC 07/20/17 14:39 4 MG ED Course The patient was evaluated as above. Labs were drawn and IV access was obtained. Patient was medicated with IV fluids and Zofran. CT of the head was performed and read by radiology as above. Patient was reevaluated and stated she felt much better. Findings were discussed with the patient. Discharge instructions were reviewed with the patient. The patient verbalized understanding of my assessment and treatment plan and was discharged home in good condition. Medical Decision The differential diagnosis includes acute intracranial bleed, meningitis, encephalitis, mass or mass effect, sinusitis, infection, tumor, headache, temporal arteritis and carbon monoxide exposure, and migraine. The patient is a 22-year-old female who presents today complaining of headache and nausea/vomiting. Labs revealed no leukocytosis, anemia or concerning elect avoid abnormalities. There is nothing on exam to suggest meningitis or encephalitis. CT was performed and read by radiology with no acute findings. Patient stated she felt much better after receiving IV Zofran. She had minimal headache on initial evaluation. I do feel that the patient requires close follow-up with her primary care provider, as she has had increasing headaches over the past few weeks. She was advised to take Excedrin Migraine or other ptap-rzf-ckfwiul treatments for her headaches at home. Based on the patient's presentation and work up, I feel the patient is stable for outpatient treatment. The patient was educated to return to the emergency department for any worsening of their current condition or new/concerning symptoms. She will follow up with her PCP. Medication Reconcilliation Current Medication List: was personally reviewed by me Blood Pressure Screening Patient's blood pressure: Normal blood pressure Impression Primary Impression: Headache Departure Information Dispostion Home / Self-Care Condition GOOD Prescriptions Ondasetron Odt (ZOFRAN ODT) 4 Mg Tab 4 MG SL Q6H for Nausea, #15 TAB Prov: Angelique Li .CHRISTINA 07/20/17 Referrals Zackery Berman M.D. (PCP) Patient Instructions My [facility] Additional Instructions You have been treated in the Emergency Department for a Headache. You have been prescribed Zofran to be used for any nausea or vomiting. Take as prescribed. For pain control, you can use the following rdmo-hzt-zmtevwo medicines (if >12 yo): - Regular strength (325mg/tab) Tylenol (acetaminophen) 2 tabs every 4-6 hours as needed. Do not exceed 12 tablets in a 24 hour period. Avoid taking more than 4 grams (4000 mg) of Tylenol per day. This includes any other sources of acetaminophen you may take on a regular basis. - Regular strength (200 mg/tab) Advil (ibuprofen) 1-2 tabs every 4-6 hours as needed. Do not exceed a dose of 3200 mg per day. You may try Excedrin Migraine for her headaches. You should relax in a quiet, dark place for the rest of the day. Avoid any possible triggers including: cigarette smoke, caffeine, nicotine, chocolate, wine, beer, loud noises or music, or bright lights. Follow-up with your primary care provider this week for further evaluation. Return to the Emergency Department if your current symptoms worsen despite treatment course outlined above, or if you develop any of the following symptoms : intractable pain despite aforementioned treatment course, visual disturbances , loss of vision, unilateral weakness or facial drooping, slurring of speech, loss of coordination, or loss of consciousness.
== END 2017-07-20 15:44 | disposition home or self-care (01) ==
LOC: C.EDB 13:39 → C.EDD 15:44
DX: R51 Headache (principal); F32.9 Major depressive disorder, single episode, unspecified; F17.210 Nicotine dependence, cigarettes, uncomplicated; Z79.899 Other long term (current) drug therapy

== ENCOUNTER 2017-09-26 18:00 | Emergency (ER) | payer OTHER ==
[~2017-09-26] VITALS: Ht 162.6 cm; Wt 83.0 kg
[~2017-09-26 18:00] MED LIST changes: +DPTSTI200 IM; +FLUO20CA35 PO; +ONDA4TAB10 SL
[2017-09-26 18:07] VITALS: TEMP 36.9; Ht 162.6 cm; Wt 83.0 kg
--- NOTE | 2017-09-26 19:14 | DIAGNOSTIC IMAGING REPORT ---
C-SPINE ROUTINE 4 OR 5 VIEWS CLINICAL HISTORY: Neck and back pain. COMPARISON STUDY: No previous studies for comparison. FINDINGS: Alignment of the cervical spine is anatomic with the exception of straightening of the normal cervical lordosis. Vertebral body heights are maintained. There is no fracture or osseous lesion. Facet joints are intact. Disc spaces are preserved. There is possible enlargement of the lingual tonsils. IMPRESSION: 1. Unremarkable cervical spine radiographs. 2. Possible enlargement of the lingual tonsils. Electronically signed by: Ayaz Mcpherson M.D. 09/26/2017 7:13 PM Dictated Date/Time: 09/26/2017 7:11 PM
--- NOTE | 2017-09-26 19:15 | DIAGNOSTIC IMAGING REPORT ---
THORACIC SPINE 3 VIEWS ROUTINE CLINICAL HISTORY: Back pain. COMPARISON STUDY: No previous studies for comparison. FINDINGS: Alignment of the thoracic spine is anatomic. No fracture or suspicious lesion is present. IMPRESSION: Unremarkable thoracic spine radiographs. Electronically signed by: Ayaz Mcpherson M.D. 09/26/2017 7:14 PM Dictated Date/Time: 09/26/2017 7:13 PM
--- NOTE | 2017-09-26 19:16 | DIAGNOSTIC IMAGING REPORT ---
L-SPINE MIN 4 VIEWS ROUTINE CLINICAL HISTORY: Back pain. COMPARISON: None FINDINGS: Alignment of the lumbar spine is anatomic. Vertebral body heights are maintained. There is no fracture or suspicious lesion. Disc spaces are preserved. Facet joints are intact. Sacroiliac joints are intact. IMPRESSION: Unremarkable lumbar spine radiographs. Electronically signed by: Ayaz Mcpherson M.D. 09/26/2017 7:15 PM Dictated Date/Time: 09/26/2017 7:14 PM
--- NOTE | 2017-09-26 19:41 | EMERGENCY ROOM VISIT NOTE ---
History First contact with patient: 18:11 Chief Complaint: BACK PAIN Stated Complaint: BACK PAIN, NECK PAIN History of Present Illness The patient is a 22 year old female who presents to the Emergency Room with complaints of back pain and neck pain. The patient states she has had neck and back pain for as long as she can remember. The patient states the pain is mostly located in the center of her back, but radiates from the neck to the low back. The pain does not radiate into her arms or legs. She denies numbness or weakness. She has never been evaluated for this before. She has taken ibuprofen, Tylenol and ibuprofen without relief. She has been performing exercises and has not noticed relief with these. She rates her discomfort a 7.5 /10. She denies fevers, abdominal pain, urinary symptoms, or saddle anesthesias. Review of Systems A complete 10 point review of systems was reviewed with the patient with pertinent positives and negatives as per history of present illness. All else were negative. Past Medical/Surgical History Medical Problems: (1) Depression (2) Dysuria (3) Pain, dental (4) Pain, dental (5) Pelvic girdle weakness (6) SI (sacroiliac) joint dysfunction (7) TOBACCO USE DISORDER Social History Smoking Status: Current Every Day Smoker Alcohol Use: occasionally Drug Use: none Marital Status: in relationship Occupation Status: employed Current/Historical Medications No Active Prescriptions or Reported Meds Physical Exam Vital Signs Date Time Temp Pulse Resp B/P (MAP) Pulse Ox O2 Delivery O2 Flow Rate FiO2 09/26/17 20:00 89 20 126/82 98 09/26/17 18:07 36.9 96 20 126/81 100 Room Air Physical Exam VITALS: Vitals are noted on the nurse's note and reviewed by myself. Vital signs stable. GENERAL: This is a 22-year-old female, in no acute distress, nondiaphoretic, well-developed well-nourished. SKIN: The skin was without rashes. NECK: Supple without nuchal rigidity. Cervical spine is nontender. HEART: Regular rate and rhythm without murmurs gallops or rubs. LUNGS: Clear to auscultation bilaterally without wheezes, rales or rhonchi. ABDOMEN: Soft, nontender to palpation. MUSCULOSKELETAL: There is vague tenderness to palpation over the thoracic and lumbar spine and paraspinous muscles. Full range of motion. Strength 5/5 in bilateral lower extremities. NEURO: Patient was alert and oriented to person place and time. Normal sensation. Deep tendon reflexes 2+ throughout. Medical Decision & Procedures ER Provider Diagnostic Interpretation: C-SPINE ROUTINE 4 OR 5 VIEWS IMPRESSION: 1. Unremarkable cervical spine radiographs. 2. Possible enlargement of the lingual tonsils. THORACIC SPINE 3 VIEWS ROUTINE IMPRESSION: Unremarkable thoracic spine radiographs. L-SPINE MIN 4 VIEWS ROUTINE IMPRESSION: Unremarkable lumbar spine radiographs. Medical Decision Differential diagnosis includes musculoskeletal pain, chronic back pain, malignancy/mass, epidural abscess, cauda equina syndrome, degenerative disc disease, among others. The patient was evaluated as above. X-rays of the cervical, thoracic and lumbar spine were performed and read by radiology with no acute findings. Patient was encouraged to take naproxen and perform stretching exercises. Case management did speak with the patient regarding insurance. The patient will need follow-up and may require physical therapy for her ongoing back pain. There is no evidence of cauda equina syndrome or cord compression. There are no neurological findings on exam. The patient will follow-up with a primary care provider regarding her ongoing back pain. She verbalized understanding of my assessment and treatment plan and was discharged home in good condition. Medication Reconcilliation Current Medication List: was personally reviewed by mo Blood Pressure Screening Patient's blood pressure: Normal blood pressure Impression Primary Impression: Chronic back pain Departure Information Dispostion Home / Self-Care Condition GOOD Prescriptions No Active Prescriptions or Reported Meds Referrals Zackery Berman M.D. (PCP) Patient Instructions My [facility] Additional Instructions You have been treated in the Emergency Department for Back Pain. Naproxen/ Aleve daily as prescribed. For pain control, you can use the following rnyh-lvc-efweszm medicines (if >12 yo): - Regular strength (325mg/tab) Tylenol (acetaminophen) 2 tabs every 4-6 hours as needed. Do not exceed 12 tablets in a 24 hour period. Avoid taking more than 4 grams (4000 mg) of Tylenol per day. This includes any other sources of acetaminophen you may take on a regular basis. - Regular strength (200 mg/tab) Advil (ibuprofen) 1-2 tabs every 4-6 hours as needed. Do not exceed a dose of 3200 mg per day. You should schedule a follow-up appointment in 2-3 days with your Primary Care Provider for further evaluation and treatment of your back pain. Return to the Emergency Department if your current symptoms worsen despite treatment course outlined above, or if you develop any of the following symptoms : intractable pain despite aforementioned treatment course, loss of control of your bowel or bladder, numbness or tingling in your groin, or development of a fever. Problem Qualifiers Primary Impression: Chronic back pain Back pain location: back pain in unspecified location Back pain laterality: midline Qualified Codes: M54.9 - Dorsalgia, unspecified; G89.29 - Other chronic pain
[2017-09-26 20:00] VITALS: BP 126/82; PULSE 89; O2SAT 98
== END 2017-09-26 19:55 | disposition home or self-care (01) ==
LOC: C.EDB 18:01 → C.EDD 19:55
DX: M54.5 Low back pain (principal); G89.29 Other chronic pain; F32.9 Major depressive disorder, single episode, unspecified; F17.210 Nicotine dependence, cigarettes, uncomplicated

== ENCOUNTER 2017-10-06 02:00 | Emergency (ER) | payer SELFPAY ==
[~2017-10-06] VITALS: Ht 162.6 cm; Wt 83.4 kg
[2017-10-06 02:08] VITALS: TEMP 36.9; Ht 162.6 cm; Wt 83.4 kg
[2017-10-06 03:23] LABS: BASO % 0.6 %; BASO ABS # 0.04 K/uL (0-0.2); EOS % 1.3 %; EOS ABS # 0.09 K/uL (0-0.5); HEMATOCRIT 39.9 % (37-47); HEMOGLOBIN 13.8 g/dL (12.0-16.0); IG# 0.02 K/uL (0.00-0.02); LYMPH % 33.2 %; LYMPH ABS # 2.37 K/uL (1.2-3.4); MEAN CELL VOLUME 93.7 fL (80-100); MEAN CORPUSCULAR HEMOGLOBIN 32.4 pg (25-34); MEAN CORPUSCULAR HGB CONC 34.6 g/dl (32-36); MONO % 9.7 %; MONO ABS # 0.69 K/uL (0.11-0.59); NEUT % 54.9 %; NEUT ABS # 3.92 K/uL (1.4-6.5); PLATELET COUNT 298 K/uL (130-400); RED CELL DISTRIBUTION WIDTH CV 12.5 % (11.5-14.5); RED CELL DISTRIBUTION WIDTH SD 42.5 fL (36.4-46.3); WHITE BLOOD COUNT 7.13 K/uL (4.8-10.8)
[2017-10-06 03:45] LABS: ALBUMIN 3.7 gm/dl (3.4-5.0); ALT/SGPT 23 U/L (12-78); AST/SGOT 16 U/L (15-37); BLOOD UREA NITROGEN 9 mg/dl (7-18); CALCIUM 8.6 mg/dl (8.5-10.1); CARBON DIOXIDE 25 mmol/L (21-32); CREATININE 0.76 mg/dl (0.60-1.20); GLUCOSE 94 mg/dl (70-99); POTASSIUM 3.6 mmol/L (3.5-5.1); SODIUM 139 mmol/L (136-145)
[2017-10-06 03:55] LABS: ALKALINE PHOSPHATASE 83 U/L (45-117); TOTAL PROTEIN 8.4 gm/dl (6.4-8.2)
--- NOTE | 2017-10-06 06:30 | EMERGENCY ROOM VISIT NOTE ---
History First contact with patient: 02:16 (Angelique Li PA-C) Chief Complaint: DETOX REQUEST Stated Complaint: REQUEST REHAB - ALCOHOL Nursing Triage Summary: Patient states that she has been dealing with some anxiety and depression, but has not been taking anxiety and depression meds as prescribed. Patient also drinks 4-5 beers a night and thinks she "needs to get back on the right track" (Angelique Li PA-C) History of Present Illness The patient is a 22 year old female who presents to the Emergency Room requesting rehabilitation for alcohol dependence. The patient reports that she believes that she has a problem with alcohol. She drinks at least 4 beers every day and has strength daily for 2 years. She states that she has been drinking since age 13. She does state that she sometimes feels shaky if she does not have alcohol. She denies any history of seizures or DTs. The patient also reports a history of depression and anxiety. She was inpatient at the [facility] in the spring of this year and was discharged on fluoxetine and Ativan as needed. She states that she took these medications for 3 months, but did not see any improvement and stopped taking them. She does feel like her depression has been worsening lately. She denies any suicidal or homicidal ideations. She states that she "does not want to , but does not want to feel like this." She does admit to drinking beer and liquor tonight before arriving here. She has never been to rehabilitation before. She denies any drug use. (Angelique Li PA-C) Review of Systems A complete 10 point review of systems was reviewed with the patient with pertinent positives and negatives as per history of present illness. All else were negative. (Angelique Li PA-C) Past Medical/Surgical History Medical Problems: (1) Depression (2) Dysuria (3) Pain, dental (4) Pain, dental (5) Pelvic girdle weakness (6) SI (sacroiliac) joint dysfunction (7) TOBACCO USE DISORDER (Maureen Paul PA-C) Social History Smoking Status: Current Every Day Smoker Alcohol Use: occasionally Drug Use: none Marital Status: in relationship Occupation Status: employed (Angelique Li PA-C) Current/Historical Medications No Active Prescriptions or Reported Meds Physical Exam Vital Signs Date Time Temp Pulse Resp B/P (MAP) Pulse Ox O2 Delivery O2 Flow Rate FiO2 10/06/17 07:42 79 20 97/65 97 Room Air 10/06/17 06:05 86 17 99/43 96 Room Air 10/06/17 05:41 79 17 101/54 99 Room Air 10/06/17 04:05 76 18 92/46 96 Room Air 10/06/17 02:08 36.9 112 16 123/83 97 Room Air (Maureen Paul, PA-C) Physical Exam VITALS: Vitals are noted on the nurse's note and reviewed by myself. Vital signs stable. GENERAL: This is a 22-year-old female, in no acute distress, pleasant, cooperative with examiner. SKIN: The skin was without rashes. EARS: External auditory canals clear, tympanic membranes pearly churchill without erythema or effusion bilaterally. EYES: Pupils equal round and reactive to light and accommodation. MOUTH: Mucous membranes moist. Tonsils are not enlarged. Pharynx without erythema or exudate NECK: Supple without nuchal rigidity. No lymphadenopathy. HEART: Regular rate and rhythm without murmurs gallops or rubs. LUNGS: Clear to auscultation bilaterally without wheezes, rales or rhonchi. NEURO: Patient was alert and oriented to person place and time. (Angelique Li, PA-C) Medical Decision & Procedures Laboratory Results 10/06/17 03:09 Red Blood Count 4.26, Mean Corpuscular Volume 93.7, Mean Corpuscular Hemoglobin 32.4, Mean Corpuscular Hemoglobin Concent 34.6, Mean Platelet Volume 10.0, Neutrophils (%) (Auto) 54.9, Lymphocytes (%) (Auto) 33.2, Monocytes (%) (Auto) 9.7, Eosinophils (%) (Auto) 1.3, Basophils (%) (Auto) 0.6, Neutrophils # (Auto) 3.92, Lymphocytes # (Auto) 2.37, Monocytes # (Auto) 0.69, Eosinophils # (Auto) 0.09, Basophils # (Auto) 0.04 10/06/17 03:09 Test 10/06/17 03:04 10/06/17 03:09 Urine Color YELLOW Urine Appearance CLEAR (CLEAR) Urine pH 5.5 (4.5-7.5) Urine Specific Ken[place] 1.010 (1.000-1.030) Urine Protein NEG (NEG) Urine Glucose (UA) NEG (NEG) Urine Ketones NEG (NEG) Urine Occult Blood 3+ (NEG) Urine Nitrite NEG (NEG) Urine Bilirubin NEG (NEG) Urine Urobilinogen NEG (NEG) Urine Leukocyte Esterase TRACE (NEG) Urine WBC (Auto) /hpf (0-5) Urine RBC (Auto) /hpf (0-4) Urine Hyaline Casts (Auto) /lpf (0-5) Urine Epithelial Cells (Auto) /lpf (0-5) Urine Bacteria (Auto) (NEG) Urine RBC 0-4 /hpf (0-4) Urine WBC 5-10 /hpf (0-5) Urine Epithelial Cells >30 /lpf (0-5) Urine Bacteria 1+ (NEG) Urine Yeast BUDDING (NONE PRSENT) Urine Test NEG (NEG) Urine Opiates Screen NEG (NEG) Urine Methadone, Qualitative NEG (NEG) Urine Barbiturates NEG (NEG) Urine Phencyclidine (PCP) Level NEG (NEG) Ur Amphetamine/Methamphetamine NEG (NEG) MDMA (Ecstasy) Screen NEG (NEG) Urine Benzodiazepines Screen NEG (NEG) Urine Cocaine Metabolite NEG (NEG) Urine Marijuana (THC) NEG (NEG) White Blood Count 7.13 K/uL (4.8-10.8) Red Blood Count 4.26 M/uL (4.2-5.4) Hemoglobin 13.8 g/dL (12.0-16.0) Hematocrit 39.9 % (37-47) Mean Corpuscular Volume 93.7 fL (80-100) Mean Corpuscular Hemoglobin 32.4 pg (25-34) Mean Corpuscular Hemoglobin Concent 34.6 g/dl (32-36) Platelet Count 298 K/uL (130-400) Mean Platelet Volume 10.0 fL (7.4-10.4) Neutrophils (%) (Auto) 54.9 % Lymphocytes (%) (Auto) 33.2 % Monocytes (%) (Auto) 9.7 % Eosinophils (%) (Auto) 1.3 % Basophils (%) (Auto) 0.6 % Neutrophils # (Auto) 3.92 K/uL (1.4-6.5) Lymphocytes # (Auto) 2.37 K/uL (1.2-3.4) Monocytes # (Auto) 0.69 K/uL (0.11-0.59) Eosinophils # (Auto) 0.09 K/uL (0-0.5) Basophils # (Auto) 0.04 K/uL (0-0.2) RDW Standard Deviation 42.5 fL (36.4-46.3) RDW Coefficient of Variation 12.5 % (11.5-14.5) Immature Granulocyte % (Auto) 0.3 % Immature Granulocyte # (Auto) 0.02 K/uL (0.00-0.02) Anion Gap 7.0 mmol/L (3-11) Est Creatinine Clear Calc Drug Dose 120.3 ml/min Estimated GFR () 128.1 Estimated GFR (Non- 110.6 BUN/Creatinine Ratio 12.2 (10-20) Calcium Level 8.6 mg/dl (8.5-10.1) Total Bilirubin 0.2 mg/dl (0.2-1) Direct Bilirubin < 0.1 mg/dl (0-0.2) Aspartate Amino Transf (AST/SGOT) 16 U/L (15-37) Alanine Aminotransferase (ALT/SGPT) 23 U/L (12-78) Alkaline Phosphatase 83 U/L (45-117) Total Protein 8.4 gm/dl (6.4-8.2) Albumin 3.7 gm/dl (3.4-5.0) Thyroid Stimulating Hormone (TSH) 0.532 uIu/ml (0.300-4.500) Ethyl Alcohol mg/dL 188.0 mg/dl (0-3) (Maureen Paul, YOGES[facility]) ED Course The patient was evaluated as above. Labs were drawn and IV access was obtained. Case management met with the patient to discuss options of care. The patient would like to pursue inpatient rehabilitation. Case management will work on arranging this. Care of the patient was signed out to Maureen Paul PA-C at change of shift pending placement in a rehabilitation facility. (Angelique Li, [facility]ES[facility]) Medical Decision Differential diagnosis includes alcohol abuse, drug use, depression, anxiety, suicidal ideations, among others. The patient is a 22-year-old female who presents today complaining of alcohol abuse. The patient is looking for help and would like to be placed in a rehabilitation facility. She does have several drinks daily and has been drinking alcohol daily for over 2 years. She has started to exhibit some symptoms of withdrawal when she abstains from alcohol. Case management met with the patient to discuss options. They attempted to place the patient in a rehabilitation facility. Care of the patient was signed out to YOGESH Ricks at change of shift pending placement in a rehabilitation facility. Please see her dictation for patient disposition. (Angelique Li PA-C) Medication Reconcilliation Current Medication List: was personally reviewed by me (Angelique Li PA-C) Blood Pressure Screening Patient's blood pressure: Normal blood pressure (Angelique Li PA-C) Impression Primary Impression: Alcohol abuse Departure Information Dispostion Other Condition GOOD Prescriptions No Active Prescriptions or Reported Meds Referrals No Doctor, Assigned (PCP) Forms HOME CARE DOCUMENTATION FORM, IMPORTANT VISIT INFORMATION, WORK / SCHOOL INSTRUCTIONS Patient Instructions My [facility]
--- NOTE | 2017-10-06 09:31 | EMERGENCY ROOM VISIT NOTE ---
ED Visit Note I received the patient in sign-out from Angelique Li PA-C. She presented today requesting alcohol detox and rehab. The patient was medically cleared for rehab. The patient is requesting detox. Case management contacted [facility] and the patient has an appointment there at 11:00 this morning to determine placement. The patient is agreeable to this plan. I did discuss this with the patient. Her mother will come pick her up. I reassessed the patient and she was resting comfortably in the room asking for a drink. She was given Apple Juice per her request. The patient has no further questions for me at this time. I did review Angelique's documentation. Discharge instructions reviewed and the patient was discharged home in good condition.
[2017-10-06 09:38] VITALS: BP 121/71; PULSE 87; O2SAT 100
[2018-04-03] MEDS ORDERED: AMPH10TA2 PO (21:50)
[2018-04-03] MEDS ORDERED: IBUP-103 PO (21:50)
[2018-04-03] MEDS ORDERED: METR-163 PO (22:28)
== END 2017-10-06 10:05 | disposition home or self-care (01) ==
LOC: C.EDB 02:02
DX: F10.10 Alcohol abuse, uncomplicated (principal); F41.9 Anxiety disorder, unspecified; F32.9 Major depressive disorder, single episode, unspecified; F17.200 Nicotine dependence, unspecified, uncomplicated

== ENCOUNTER 2018-01-05 15:58 | Emergency (ER) | payer SELFPAY ==
[~2018-01-05] VITALS: Ht 162.6 cm; Wt 81.9 kg
[2018-01-05 16:00] VITALS: Ht 162.6 cm; Wt 81.9 kg
--- NOTE | 2018-01-05 17:32 | DIAGNOSTIC IMAGING REPORT ---
TWO VIEW CHEST CLINICAL HISTORY: Fever. Cough. FINDINGS: PA and lateral chest radiographs are correlated with thoracic spine radiographs dated 09/26/2017. The cardiomediastinal silhouette is unremarkable. The lungs and pleural spaces are clear. There is no pneumothorax. The bony thorax appears intact. IMPRESSION: No active disease in the chest. Electronically signed by: Fransico Kohli M.D. 01/05/2018 5:31 PM Dictated Date/Time: 01/05/2018 5:30 PM
[2018-01-05 18:28] VITALS: BP 116/76; PULSE 66; TEMP 37; O2SAT 97
--- NOTE | 2018-01-05 18:28 | EMERGENCY ROOM VISIT NOTE ---
History Report prepared by Darrell: Carson Powers Under the Supervision of: Dr. Ariel Simpson M.D. First contact with patient: 16:57 Chief Complaint: FLU LIKE SX Stated Complaint: CONGESTION, THROAT PAIN, CHEST PAIN, COUGH History of Present Illness The patient is a 22 year old female who presents to the Emergency Room with complaints of persistent sore throat for four days. She notes that he has been feeling sick for five days initially with congestion. She states that she then developed a cough and sore throat. She notes the cough is irritating her throat. She reports shortness of breath with walking. She denies any fever. She notes that she was here in the ED a few days ago with her girlfriend and she thinks she may have caught something. She has a history of elevated blood pressure. The patient denies any chance of . She is on testosterone hormone therapy. Source of History: patient Onset: four days ago Position: throat Quality: other (sore) Timing: other (persistent) Associated Symptoms: + SOB, No fevers Review of Systems See HPI for pertinent positives & negatives. A total of 10 systems reviewed and were otherwise negative. Past Medical & Surgical Medical Problems: (1) Anxiety (2) Depression (3) Dysuria (4) Pain, dental (5) Pain, dental (6) Pelvic girdle weakness (7) SI (sacroiliac) joint dysfunction (8) TOBACCO USE DISORDER Family History No pertinent family history Social History Smoking Status: Current Every Day Smoker Alcohol Use: occasionally Drug Use: none Marital Status: in relationship Occupation Status: employed Current/Historical Medications No Active Prescriptions or Reported Meds Allergies Coded Allergies: No Known Allergies (Unverified , 09/26/17) Physical Exam Vital Signs Date Time Temp Pulse Resp B/P (MAP) Pulse Ox O2 Delivery O2 Flow Rate FiO2 01/05/18 17:20 37.0 78 18 128/77 97 Room Air 01/05/18 16:00 37.0 78 18 139/79 97 Room Air Physical Exam Constitutional: Vital signs reviewed. Eyes: Pupils are equal round reactive to light. Conjunctiva are noninjected. ENT: Pharynx is clear without erythema or exudate. Mucous membranes are moist. No sinus tenderness. Neck supple without meningeal signs. Respiratory: Clear to auscultation bilaterally. Breath sounds are equal bilaterally. Cardiovascular: Regular rate and rhythm. No rubs or gallops. GI: Soft, nondistended and nontender. Bowel sounds are present. Musculoskeletal: No peripheral edema. Integumentary: No cyanosis. Neurological: The patient is awake and alert. No focal deficits. Psychiatric: Normal affect. Medical Decision & Procedures ED Course 165: The patient was evaluated in room C5. A complete history and physical exam was performed. Medical Decision This is a 22-year-old female who presents with sinus congestion, sore throat and cough. Differential diagnosis includes pharyngitis, bronchitis, pneumonia, sinusitis. I did perform a limited focused review of portions of the patient's old chart on the electronic medical record. The patient has had no recent pertinent visits to this hospital. I did evaluate the patient as noted above. I did order and personally review the patient's chest x-ray as described above. There is no evidence of acute infiltrate. The patient has no erythema to posterior oropharynx. She has no signs of an acute bacterial illness at this time. I did explain to her that she likely has a viral illness and recommended [id number] remedies. E she was advised to follow-up with her doctor and discharged in good condition. Ly Medication Reconcilliation Current Medication List: was personally reviewed by me Blood Pressure Screening Patient's blood pressure: Elevated blood pressure Blood pressure disposition: Referred to PCP Impression Primary Impression: Acute bronchitis Additional Impression: Sinusitis Scribe Attestation The scribe's documentation has been prepared under my direct and personally reviewed by me in its entirety. I confirm that the note above accurately reflects all work, treatment, procedures, and medical decision making performed by me. Departure Information Prescriptions No Active Prescriptions or Reported Meds Referrals Zackery Berman M.D. (PCP) Patient Instructions My [facility] Problem Qualifiers Primary Impression: Acute bronchitis Bronchitis organism: unspecified organism Qualified Codes: J20.9 - Acute bronchitis, unspecified Additional Impression: Sinusitis Sinusitis location: unspecified location Chronicity: acute Recurrence: not specified as recurrent Qualified Codes: J01.90 - Acute sinusitis, unspecified
== END 2018-01-05 18:28 | disposition home or self-care (01) ==
LOC: C.EDB 16:00 → C.EDC 18:28
DX: J20.9 Acute bronchitis, unspecified (principal); J01.90 Acute sinusitis, unspecified; F41.9 Anxiety disorder, unspecified; F32.9 Major depressive disorder, single episode, unspecified; F17.210 Nicotine dependence, cigarettes, uncomplicated